=== PATIENT | female | born 1955 | race Caucasian/White ===

== ENCOUNTER 2024-03-10 09:36 | Emergency (ER) | payer OTHER, SELFPAY ==
[2024-03-10 09:38] VITALS: BP 154/87
[2024-03-10 10:13] VITALS: BMI 33.8
--- NOTE | 2024-03-10 10:14 | ED.GENMED ---
History of Present Illness
<Aislinn Dillard MD, Resident - Last Filed: 03/10/24 13:18>
General
Chief Complaint: Abdominal Pain
Source: patient
Time Seen by Provider: 03/10/24 10:11
History of Present Illness
History of Present Illness:
This is a 68 year old female patient with PMH of HTN, HLD, hx of diverticulitis, colon cancer s/p colon resection who presented to the ED with concerns of abdominal pain. She states that her abdominal pain started last night around 1 am which was
she described as crampy, epigastric in location and continuos. This was associated with severe nausea and a few episodes of non-bloody vomiting. She endorses diarrhea which she had 2-3 episodes at home. She had gone on a road trip the previous day
and had stopped at a fast food center but denies any other history of travel, fever, or chills. She also denies any chest pain, palpitations or lightheadedness.
Past History
<Aislinn Dillard MD, Resident - Last Filed: 03/10/24 13:18>
Past History
ED Past Medical History: HTN and Other (HLD, diverticulitis, Colon cancer, )
ED Past Surgical History: Bowel resection
Social History
Tobacco: Non-smoker
Alcohol: None
Drug: None
Personal:
Living: with family
Review of Systems
<Aislinn Dillard MD, Resident - Last Filed: 03/10/24 13:18>
Review of Systems
Constitutional: Denies fever or chills
Respiratory: Denies cough
Cardiac: Denies chest pain or palpitations
ABD/GI: Reports abdominal pain, nausea, vomiting and diarrhea
: Denies dysuria
Musculoskeletal: Denies edema
Neurological: Denies dizzy or headache
Phy Exam
<Aislinn Dillard MD, Resident - Last Filed: 03/10/24 13:18>
General Physical Exam
General Presentation: no apparent distress
Cardiovascular Exam
Cardiovascular Exam: regular rate/rhythm and no murmur
Heart Sounds: normal
Pulmonary Exam
Pulmonary Exam: lungs clear, no respiratory distress and no crackles
Gastrointestinal Exam
Gastrointestinal Exam: soft, non distended and tender (generalized abd pain, mainly localized to epigastric region)
Neurological Exam
Neurological Exam: oriented x3
Musculoskeletal Exam
Musculoskeletal Exam: no edema
Skin Exam
Skin Exam: warm/dry
Psychiatric Exam
Psychiatric Exam: normal mood/affect
Course
<Aislinn Estrella Dillard MD, Resident - Last Filed: 03/10/24 13:18>
Orders/Labs/Results
Orders:
Orders
03/10/24 09:43
EKG [Electrocardiogram (*1)] Urgent
Reason for Study: Abdominal Pain
EKG- Treatment ONCE
03/10/24 10:26
CMP [Comprehensive Metabolic Panel] Urgent
Complete Blood Count/With Diff Urgent
Lipase Urgent
Comment: ADD ON
Troponin I Urgent
Urinalysis Reflex To Culture Urgent
Date Specimen was Collected: 03/10/24
Time Specimen was Collected: 10:25
Urine Microscopic Reflex Cult Urgent
03/10/24 10:50
Add On- LAB Urgent
Tests Added?: lipase
CT Abd/pelvis W Iv Cont Urgent
Comment:
Reason For Exam: epigastric pain
03/10/24 10:51
0.9% Sodium Chloride 1000 ml [Nss] 1,000 ml IV BOLUS
Ondansetron Injectable [Zofran] 4 mg IV NOW STA
03/10/24 10:57
Ketorolac [Toradol] 15 mg IV NOW STA
03/10/24 11:13
CR Chest Portable - 1 View Urgent
Comment:
Reason For Exam: hypoxia
Reason Study Needs to be Portable: Patient Unstable
Abnormal Lab Results
03/10/24
10:26
MCH 31.1 H pg
(27.0-31.0)
MPV 11.8 H fL
(7.4-10.4)
Abs Immat Gran (auto) 0.1 H 10^3/uL
(0-0.05)
Absolute Neuts (auto) 8.7 H 10^3/uL
(1.4-6.5)
Neutrophils % 82.9 H %
(42.2-75.2)
Lymphocytes % 12.3 L %
(20.5-51.1)
BUN 18 H mg/dl
(7-17)
Creatinine 0.5 L mg/dL
(0.6-1.0)
Glucose 152 H mg/dl
(70-99)
AST 40 H U/L
(14-36)
ALT 45 H U/L
(0-35)
Urine Ketones Trace A
(Negative)
Ur Occult Blood Reflex 1+ A
(Negative)
Urine RBC 7-10 A /HPF
(0-2)
Urine Bacteria (Reflex) Few A
(Negative)
03/10/24 10:26
03/10/24 10:26
Vital Signs
Initial and Last Documented VS:
Initial Vital Signs
Temp Pulse Resp BP Pulse Ox
98.1 F 78 16 154/87 98
03/10/24 09:38 03/10/24 09:38 03/10/24 09:38 03/10/24 09:38 03/10/24 09:38
Last Documented Vital Signs
Temp Pulse Resp BP Pulse Ox
98.1 F 73 19 145/81 96
03/10/24 09:38 03/10/24 10:30 03/10/24 10:30 03/10/24 10:23 03/10/24 10:30
<Soham Mishra MD - Last Filed: 03/10/24 13:31>
Orders/Labs/Results
Orders:
Orders
03/10/24 09:43
EKG [Electrocardiogram (*1)] Urgent
Reason for Study: Abdominal Pain
EKG- Treatment ONCE
03/10/24 10:26
CMP [Comprehensive Metabolic Panel] Urgent
Complete Blood Count/With Diff Urgent
Lipase Urgent
Comment: ADD ON
Troponin I Urgent
Urinalysis Reflex To Culture Urgent
Date Specimen was Collected: 03/10/24
Time Specimen was Collected: 10:25
Urine Microscopic Reflex Cult Urgent
03/10/24 10:50
Add On- LAB Urgent
Tests Added?: lipase
CT Abd/pelvis W Iv Cont Urgent
Comment:
Reason For Exam: epigastric pain
03/10/24 10:51
0.9% Sodium Chloride 1000 ml [Nss] 1,000 ml IV BOLUS
Ondansetron Injectable [Zofran] 4 mg IV NOW STA
03/10/24 10:57
Ketorolac [Toradol] 15 mg IV NOW STA
03/10/24 11:13
CR Chest Portable - 1 View Urgent
Comment:
Reason For Exam: hypoxia
Reason Study Needs to be Portable: Patient Unstable
Abnormal Lab Results
03/10/24
10:26
MCH 31.1 H pg
(27.0-31.0)
MPV 11.8 H fL
(7.4-10.4)
Abs Immat Gran (auto) 0.1 H 10^3/uL
(0-0.05)
Absolute Neuts (auto) 8.7 H 10^3/uL
(1.4-6.5)
Neutrophils % 82.9 H %
(42.2-75.2)
Lymphocytes % 12.3 L %
(20.5-51.1)
BUN 18 H mg/dl
(7-17)
Creatinine 0.5 L mg/dL
(0.6-1.0)
Glucose 152 H mg/dl
(70-99)
AST 40 H U/L
(14-36)
ALT 45 H U/L
(0-35)
Urine Ketones Trace A
(Negative)
Ur Occult Blood Reflex 1+ A
(Negative)
Urine RBC 7-10 A /HPF
(0-2)
Urine Bacteria (Reflex) Few A
(Negative)
03/10/24 10:26
03/10/24 10:26
Vital Signs
Initial and Last Documented VS:
Initial Vital Signs
Temp Pulse Resp BP Pulse Ox
98.1 F 78 16 154/87 98
03/10/24 09:38 03/10/24 09:38 03/10/24 09:38 03/10/24 09:38 03/10/24 09:38
Last Documented Vital Signs
Temp Pulse Resp BP Pulse Ox
98.1 F 73 19 145/81 96
03/10/24 09:38 03/10/24 10:30 03/10/24 10:30 03/10/24 10:23 03/10/24 10:30
<Aislinn Estrella Dillard MD, Resident - Last Filed: 03/10/24 13:18>
MDM/Problems Addressed
Differential Diagnosis Includes:
Gastroenteritis, Atypical ACS, Acute Pancreatitis, Small Bowel Obstruction
MDM/Problems Addressed:
CBC/CMP/CT abdomen done. Abdominal pain likely due to gastroenteritis based on CT abd done with no significant findings and no elevated WBC. Patient was able to tolerate oral intake of food, felt less nauseous and abdominal pain is now very mild. Pt
will be discharged home with instructions for supportive care.
<Aislinn Dillard MD, Resident - Last Filed: 03/10/24 13:18>
*Critical Care Note
Total Time (30-74mins, 75-104mins- exclusive of procedures): Not Applicable
ED Attending Note
<Aislinn Dillard MD, Resident - Last Filed: 03/10/24 13:18>
-
Portions of this chart may have been created with voice recognition software.� Occasional wrong word or��sound alike� substitutions may have occurred due to the inherent limitations of voice recognition software.
<Soham Mishra MD - Last Filed: 03/10/24 13:31>
ED Attending Note
Patient seen and examined by attending physician: Yes
I performed a history and physical exam of patient and discussed management with resident, I reviewed resident's note and agree with documented findings and plan of care.: Yes
ED Attending Note:
I have seen and evaluated the patient with a [id number] encounter. I have spoken to the [resident] and involved in the medical history, the physical exam, medical decision making.
Evaluation and management service: agree unless noted differently below.
Results interpretation: agree unless noted differently below.
68-year-old woman with history of hypertension, hyperlipidemia presenting to the emergency department with abdominal pain. Patient states that yesterday they came back from a road trip. She did eat [employer]. She did have a normal dinner
afterwards. She then woke up at 1 AM with 2 episodes of nonbloody vomiting and nausea as well as 3 episodes of nonbloody diarrhea. She is having significant epigastric abdominal pain. She has had indigestion before and did take Tums however it
did not improve. No exertional component. No rash. No chest pain or shortness of breath. There is never happened to her before
GENERAL: Uncomfortable appearing
HEENT: normocephalic, extraocular movements intact, dry oral mucosa
NECK: normal inspection
RESPIRATORY: no respiratory distress, clear to auscultation bilaterally
CARDIOVASCULAR: regular rate and rhythm
ABDOMEN/: soft, non-distended, epigastric as well as right upper quadrant tenderness to palpation, no rebound or guarding
EXTREMITIES: non-tender, no edema/swelling
NEUROLOGIC: awake and alert, moves all extremities
SKIN: warm
68-year-old woman presenting to the emergency department 1 day of nausea vomiting diarrhea. Vitals unremarkable exam does show epigastric and right upper quadrant tenderness. Differential consist of viral gastroenteritis versus cholecystitis
versus pancreatitis versus atypical ACS. Will check blood work EKG and CT scan. Will pain control and give Zofran. Will give IV fluid. On reevaluation patient does feel slightly better. Nursing notified me as patient was taking shallow breaths
secondary to the pain requiring some nasal cannula. I did offer patient IV morphine however she declined at this time. Blood work unremarkable. CT scan with hernia but no signs of obstruction. Also obtain a chest x-ray given the episode of cocci
a. Chest x-ray per my interpretation with no focal opacity. On reevaluation patient does feel much better. She is tolerating p.o. She has been off oxygen. Will discharge at this time with strict follow-up.
Discharge Plan
Departure
Patient Disposition: Home (Routine Discharge)
Date of Disposition: 03/10/24
Time of Disposition: 13:08
Patient with high blood pressure during this ER visit?: Yes
Discharge Problem:
Abdominal pain, Gastroenteritis
Referrals:
UNKNOWN - PT DOES,NOT KNOW [Family Provider] -
Activity Restrictions/Additional Instructions:
If worsening symptoms such as severe abdominal pain, high grade fever or chills please return to the ER.
Supportive care such as tylenol, good hydration and balanced diet is recommended.
Interventions
Interventions:
*Risk Screen - Suicide Last Done: 03/10/24 09:38
*General Assessment Last Done: 03/10/24 09:38
*Neglect/Abuse Screening Last Done: 03/10/24 09:38
ED- Fall Risk Assessment Last Done: 03/10/24 10:13
*ED COVID-19 Vaccine History Last Done: 03/10/24 10:13
BF-Bjbyny-Atagbdxmbr Assessment Last Done: 03/10/24 10:13
Discharge Date and Time
Print Language: NIGERIEN
[2024-03-10 10:23] VITALS: BP 145/81
[2024-03-10 10:33] LABS: Urine Albumin Trace (Neg - Trace); Urine Bilirubin Negative (Negative); Urine Character Clear (Clear); Urine Color Yellow; Urine Glucose Negative (Negative); Urine Ketone Trace (Negative); Urine Leukocyte Negative (Negative); Urine Nitrite Negative (Negative); Urine Occult Blood 1+ (Negative); Urine Urobilinogen Negative (Neg - 1+)
[2024-03-10 10:34] LABS: % Basophils 0.4 % (0-2); % Eosinophils 0.1 % (0-6); % Immature Granulocytes 0.5 % (0-0.5); % Lymphocytes 12.3 % (20.5-51.1); % Monocytes 3.8 % (1.7-9.3); % Neutrophils 82.9 % (42.2-75.2); Absolute Immature Granulocytes 0.1 10^3/uL (0-0.05); Absolute Lymphocytes 1.3 10^3/uL (1.2-3.4); Absolute Monocytes 0.4 10^3/uL (0.1-0.6); Absolute Neutrophils 8.7 10^3/uL (1.4-6.5); Hematocrit 41.9 % (37.0-47.0); Hemoglobin 14.1 g/dL (12.0-16.0); Mean Corp Hgb Conc. 33.7 g/dL (33.0-37.0); Mean Corpuscular Hgb 31.1 pg (27.0-31.0); Mean Corpuscular Volume 92.5 fL (81.0-99.0); Mean Platelet Volume 11.8 fL (7.4-10.4); Nucleated Red Blood Cells % 0 %; Platelet Count 208 10^3/uL (130-400); Red Blood Cell Count 4.53 10^6/uL (4.20-5.40); Red Cell Dist. Width 12.5 % (11.5-14.5); White Blood Cell Count 10.4 10^3/uL (4.8-10.8)
[2024-03-10 10:43] LABS: Urine Squamous Cell 16-20 /LPF (Few)
[2024-03-10 10:46] LABS: ALT (SGPT) 45 U/L (0-35); AST (SGOT) 40 U/L (14-36); Albumin 4.9 g/dl (3.5-5.0); Alkaline Phosphatase 96 U/L (38-126); Blood Urea Nitrogen 18 mg/dl (7-17); Calcium 9.8 mg/dl (8.4-10.2); Carbon Dioxide 24 mmol/L (22-30); Chloride 98 mmol/L (98-107); Estimated Creatinine Clearance 110 ml/min; Glucose 152 mg/dl (70-99); Potassium 3.8 mmol/L (3.5-5.1); Sodium 138 mmol/L (135-145); Total Bilirubin 0.5 mg/dl (0.2-1.3); Total Protein 7.8 g/dl (6.3-8.2); eGFR > 60.00
[2024-03-10 10:48] LABS: Urine Bacteria Few (Negative)
[2024-03-10] MEDS: NSS 1000 IV (10:56)
[2024-03-10] MEDS: ZOFRAN 4 MG IV (10:56)
[2024-03-10 10:57] LABS: Troponin I < 0.012 ng/ml
[2024-03-10] MEDS: TORADOL 15 MG IV (11:03)
[2024-03-10 11:39] LABS: Lipase 99 U/L (23-300)
== END 2024-03-10 13:35 | disposition home or self-care (01) ==
LOC: EMR 09:36
PROVIDERS: Student in an Organized Health Care Education/Training Program; EMERGENCY PHYSICIAN Student in an Organized Health Care Education/Training Program
DX: K52.9 Noninfective gastroenteritis and colitis, unspecified (principal); I10 Essential (primary) hypertension; E78.5 Hyperlipidemia, unspecified; Z85.038 Personal history of other malignant neoplasm of large intestine; Z90.49 Acquired absence of other specified parts of digestive tract
CPT/HCPCS: 96374; 96375; 99285; 71045; 74177; 80053; 81003; 81015; 83690; 84484; 85025; 93005; Q9967